=== PATIENT | male | born 1980 | race African-American/Black ===

== ENCOUNTER 2020-07-30 18:49 | Emergency (ER) | payer OTHER ==
[~2020-07-30] VITALS: Ht 175.3 cm; Wt 117.9 kg
[2020-07-30] MEDS ORDERED: NORCO 10-325 T1 EACH PO (20:52)
[2020-07-30 21:16] VITALS: BP 123/96
== END 2020-07-30 21:37 | disposition home or self-care (01) ==
LOC: ER 18:49
DX: S42.351A Displaced comminuted fracture of shaft of humerus, right arm, initial encounter for closed fracture (principal); V49.9XXA Car occupant (driver) (passenger) injured in unspecified traffic accident, initial encounter; Y93.89 Activity, other specified; Y92.89 Other specified places as the place of occurrence of the external cause; Y99.8 Other external cause status